=== PATIENT | male | born 1950 | race Caucasian/White ===

== ENCOUNTER → 2016-12-25 | Outpatient (CLI) | payer OTHER ==
[~2016-12-25] VITALS: Ht 172.7 cm; Wt 72.6 kg
[~2016-12-25] MED LIST: CHLORTHALIDONE25 MG PO; CO Q-10100 MG PO; COZAAR 50 MG TA50 M2 PO; FISH OIL 1,001000 M2 PO; OMEPRAZOLE 20 M20 M1 PO; PRALUENT P75 MG/1 ML SQ
--- NOTE | ~2016-12-25 | S ---
[facility] [place] [address] SURGICAL PATH RPT PROCEDURE Name: DANY LAUGHLIN Room #: REG CLI M..#: [id number] Admission: 12/25/16 Date of : 52 Discharge: Report #: [id number] Path Case #: [id number] PATHOLOGY REPORT COLLECTION DATE: 12/25/2016 RECEIVED DATE: 12/25/2016 SUBMITTING PHYS: Dr. Noel Gonzales OTHER PHYS: Dr. Harpal Montiel SPECIMEN(S) RECEIVED: A.Distal esophagus * * * * * * * * * * * * FINAL DIAGNOSIS: "Distal esophagus", biopsy: - Esophageal squamous mucosa and gastric cardiac-type mucosa with reactive changes, chronic inflammation and focal minimal intestinal metaplasia, compatible with Cuevas's mucosa; no dysplasia seen. (See comment). COMMENT: Clinical and endoscopic correlation is required. PATHOLOGIST: Danielle Gay M.D. REPORT ELECTRONICALLY SIGNED BY: Danielle Gay M.D. DATE/TIME: 12/29/2016 22:20 * * * * * * * * * * * * GROSS PATHOLOGY: Received in formalin labeled "Dany Laughlin, distal esophagus biopsy," are 4 segments of humphrey soft tissue measuring 0.7 x 0.5 x 0.3 cm in aggregate dimensions and ranging from 0.3 to 0.5 cm in maximum dimension. The specimen is submitted entirely in cassette A1. (KAH; 12/28/2016) CLINICAL HISTORY: Pre-op dx: Cuevas's Post-op dx: Multiple strictures, Cuevas's, hiatal hernia INITIAL CPT CODE(S): A; 76166 [facility] [address], [place] [address] [facility] [address] [place] [address] SURGICAL PATH RPT PROCEDURE Name: DANY LAUGHLIN Room #: REG SHERI Mccray.#: [id number] Admission: 12/25/16 Date of : 52 Discharge: Report #: [id number] Path Case #: [id number] Technical services performed by [facility] at [address] [place] [address], [facility] [address] [address]. [facility] [address] [address] PHONE: [phone] DIRECTOR: Joni Craft M.D. * * * END OF REPORT * * *
--- NOTE | ~2016-12-25 | P ---
[facility] [place] [address] PROCEDURE REPORT Name: DANY LAUGHLIN [facility] [id number] Admission: 12/25/16 Attend Phys: Noel Gonzales MD Discharge: Date of : 52 Report #: [id number] THIS REPORT FOR: //name// CC: Harpal Gonzales PROCEDURE: Outpatient upper endoscopy. BRIEF HISTORY: The patient is a 66-year-old male known to me with history of Cuevas's esophagus and also multiple distal esophageal strictures. PREOPERATIVE DIAGNOSES: Dysphagia, Cuevas esophagus. POSTOPERATIVE DIAGNOSES: 1. Multiple distal esophageal strictures. 2. Cuevas's esophagus. 3. Moderate hiatus hernia. MEDICATIONS: Deep sedation with propofol per anesthesia. SPECIMEN: Biopsy, distal esophagus regarding Cuevas. ESTIMATED BLOOD LOSS: 3 mL. PROCEDURE: EGD with balloon dilation of distal esophagus and biopsy of Cuevas mucosa. FINDINGS: Prior to propofol sedation, procedure of upper endoscopy and dilation was reviewed with the patient as well as potential risks and its complications. He indicates he understands and desires to proceed. DESCRIPTION OF PROCEDURE: With the patient in left lateral decubitus position, the [employer] video endoscope was inserted into the cervical esophagus under direct vision without difficulty. Examination of this organ throughout its entire length revealed normal esophageal mucosa in the proximal and mid esophagus. However, we advanced the scope distally, starting at about 33 cm, there were noted to be multiple strictures and some luminal irregularity; however, the mucosa was flat. A couple of small squamous islands of Cuevas mucosa were seen. As the scope was advanced through multiple strictures, there were 2 areas of mucosa consistent with Cuevas's. About 40% to 50% of lumen was involved in the distal 2 cm. The Cuevas mucosa was flat. Again, multiple mild strictures were seen. I presume at some point, there was some sort of injury or trauma to the esophagus at this level. The scope passed through very easily. A small to moderate hiatus hernia was encountered. The mucosa in the hernia was normal. Scope was advanced into the stomach, which was examined on end view as well as retroflexed views. There is normal-appearing mucosa. A hiatus hernia was seen. [facility] [address] [place] [address] PROCEDURE REPORT Name: LAUGHLINDANY ANJELICA Room #: REG [facility].#: [id number] Admission: 12/25/16 Attend Phys: Noel Gonzales MD Discharge: Date of : 52 Report #: [id number] The examination of distal stomach revealed normal mucosa. The pylorus, duodenal bulb and postbulbar sweep were inspected and noted to be unremarkable. At that point, the scope was slowly withdrawn and careful circumferential views confirmed the above findings. We positioned the scope in the distal esophagus and initially used a 12-13.5-15 mm balloon. I actually positioned the balloon at the proximal and distal aspects of this narrowed segment. There was minimal contact of balloon with the mucosa at 12 and 13.5. There was contact with insufflation of the balloon at the 15 mm level. Following dilation with a 15 mm balloon, couple of very superficial tears were seen, no more than about 2 mm. We then went on to 16.5 mm balloon. There was a little bit more superficial tear in the proximal segment of this 3 strictured area, and we discontinued further efforts to dilate it at that point. We then obtained biopsies of the Cuevas mucosa. Scope was withdrawn. The patient tolerated the procedure well. CONDITION OF THE PATIENT UPON DISCHARGE: Following procedure, the patient was drowsy, aroused, conversant and will be discharged home when fully ambulatory. INSTRUCTIONS TO THE PATIENT AND FAMILY AT THE TIME OF DISCHARGE: We will have the patient started off on liquids and advance as tolerated. He shall continue his PPI for his Cuevas. We will follow up on biopsies, but at this point, unless dysplasia is present and further intervention is required, we will have her return in 3 years for repeat dilation. He will return to care of Dr. Montiel and will return to see me as needed. <ELECTRONICALLY SIGNED> By: Noel Gonzales MD 12/26/16 1228 0844 1156 Noel Gonzales MD /nt
== END | disposition home or self-care (01) ==
LOC: GI 12-24 08:13
DX: K22.2 Esophageal obstruction (principal); K22.70 Barrett's esophagus without dysplasia; K44.9 Diaphragmatic hernia without obstruction or gangrene
CPT/HCPCS: 62110; 62900

== ENCOUNTER → 2019-08-04 | Outpatient (CLI) | payer OTHER ==
[~2019-08-04] VITALS: Ht 172.7 cm; Wt 74.8 kg
[~2019-08-04] MED LIST changes: +ASPIR-LOW81 MG PO; +TOPROL XL25 MG PO
--- NOTE | 2019-08-08 11:07 | PATH ---
[facility] [address] [place] [address] PATHOLOGY RPT PROCEDURE Name: DANY LAUGHLIN Room #: REG SHERI Mccray.#: [id number] Admission: 08/04/19 Date of : 52 Discharge: Report #: [id number] Path Case #: [id number] [facility] Accession Number: [id number] . 01 Material submitted: . PART A: esophagus - BIOPSY OF ESOPHAGUS AT 40CM R/O DYSPLASIA PART B: esophagus - BIOPSY OF ESOPHAGUS AT 38CM R/O DYSPLASIA PART C: esophagus - RANDOM BIOPSY OF ESOPHAGUS R/O EOE PART D: colon - POLYP AT 50CM PART E: colon - POLYP AT 20CM . 01 Clinical history: . Cuevas's, hiatus hernia, gastritis. . 02 Diagnosis: A. Gastroesophageal mucosa, esophagus at 40 cm, endoscopic biopsy: - Specialized columnar epithelium with intestinal metaplasia consistent with Cuevas's metaplasia. - Negative for dysplasia. - Squamous mucosa with mild esophagitis. . B. Gastroesophageal mucosa, esophagus at 38 cm, endoscopic biopsy: - Specialized columnar epithelium with intestinal metaplasia consistent with Cuevas's metaplasia. - Negative for dysplasia. - Squamous mucosa with mild esophagitis. . C. Squamous mucosa, esophagus rule out eosinophilic esophagitis, endoscopic biopsy: - Mild active esophagitis. - No increase in intraepithelial eosinophils (less than 1/HPF). - Negative for intestinal metaplasia or dysplasia. . D. Polyp, at 50 cm, endoscopic biopsy: - Tubular adenoma. - Negative for high grade dysplasia. . E. Polyp, at 20 cm, endoscopic biopsy: - Tubular adenoma. - Negative for high grade dysplasia. - Inked/cauterized margins showing unremarkable mucosa. (IUV/db; 08/07/2019) LBQ 08/07/2019 1542 Local . 02 Electronically signed: . Tiff Diaz MD, Pathologist NPI- [id number] [address] [address] PATHOLOGY RPT PROCEDURE Name: DANY LAUGHLIN Room #: REG CLI Shazia.#: [id number] Admission: 08/04/19 Date of : 52 Discharge: Report #: [id number] Path Case #: [id number] . 01 Gross description: . A. Received in formalin labeled "Dany Laughlin BX of esophagus at 40 cm rule out dysplasia" is a 1.0 x 0.6 x 0.1 cm aggregate of humphrey-brown mucosa fragments. The specimen is submitted in A1. . B. Received in formalin labeled "Dany Laughlin, BX of esophagus at 38 cm rule out dysplasia" is a 0.9 x 0.5 x 0.1 cm aggregate of humphrey-brown mucosa fragments. The specimen is submitted in B1. . C. Received in formalin labeled "Dany Laughlin, random BX of esophagus rule out EOE" is a 1.0 x 0.5 x 0.1 cm aggregate of humphrey-brown mucosa fragments. The specimen is submitted in C1. . D. Received in formalin labeled "Dany Laughlin, polyp at 50 cm" is a 1.6 x 0.6 x 0.1 cm fragment of humphrey-brown mucosa. The margin is inked and the specimen is bisected and submitted in D1. . E. Received in formalin labeled "Dany Laughlin, polyp at 20 cm" is a 1.0 x 0.8 x 0.8 cm humphrey-brown nodular mucosal polyp. The margin is inked and the specimen is serially sectioned and submitted in E1. ([facility]; 08/05/2019) [facility] 08/05/2019 0923 Local . 02 Pathologist provided ICD-10: K22.70, K20.9, D12.6 . 02 CPT . 198857, 729444, 383840, 751309, 765229 Specimen Comment: A courtesy copy of this report has been sent to [phone], [phone] Specimen Comment: [phone] Specimen Comment: Report sent to and Performed at: [address] [facility], [place], [place] [id number] MD Ming Eagle MD Phone: [phone] Performed at: [address] [facility] [id number] MD Tiff Diaz MD Phone: [phone]
--- NOTE | 2019-08-09 16:47 | P ---
[facility] [place] [address] PROCEDURE REPORT Name: DANY LAUGHLIN Room #: REG [facility]#: [id number] Admission: 08/04/19 Attend Phys: Noel Gonzales MD Discharge: Date of : 52 Report #: [id number] THIS REPORT FOR: //name// CC: Harpal Gonzales DATE OF SERVICE: 08/04/2019 BRIEF HISTORY: The patient is a 69-year-old male known to me with a history of reflux disease and Cuevas esophagus. He presents for a followup of his Cuevas esophagus. In the past, he has had non-dysplastic mucosa. PREOPERATIVE DIAGNOSIS: Cuevas's esophagus. POSTOPERATIVE DIAGNOSES: 1. Cuevas's esophagus. 2. Small intermittently seen hiatus hernia. 3. Diffusely scarred esophagus. 4. Diffuse gastritis. MEDICATIONS: Deep sedation with propofol per anesthesia. SPECIMENS: 1. Biopsy of esophagus at 40 cm. 2. Biopsy of esophagus at 38 cm. 3. Random biopsies of esophagus. ESTIMATED BLOOD LOSS: 3 mL. PROCEDURE: EGD with biopsy. FINDINGS: Prior to propofol sedation, procedure of upper endoscopy was reviewed with the patient as well as potential risks and its complications. He indicates he understands and desires to proceed. DESCRIPTION OF PROCEDURE: With the patient in left lateral decubitus position, the Olympus video endoscope was inserted in the cervical esophagus under direct vision without difficulty. Examination of this organ through its entire length revealed intact esophageal mucosa. Examination of esophagus revealed what appeared to be scarring involving essentially the distal two-third of the esophagus. There was also evidence of some mild stricturing. This has been noted in the past. He has been dilated in the past. At this time, he reports as long as he is on the omeprazole, he has no complaints of dysphagia. The scope was advanced and once again he was found to have evidence of Cuevas's mucosa in the distal esophagus at about 36-38 cm. A few islands of Cuevas [facility] [address] [place] [address] PROCEDURE REPORT Name: DANY LAUGHLIN Room #: REG [facility].#: [id number] Admission: 08/04/19 Attend Phys: Noel Gonzales MD Discharge: Date of : 52 Report #: [id number] mucosa was seen. The mucosa was flat. It was examined with white light and narrow banded imaging. Just distal to that area at about 40 cm, there was a 2 cm segment of Cuevas mucosa, it involved about 50% of lumen. Once again, it had flat mucosa with white light and narrow banded imaging. Multiple biopsies were obtained. Intermittently, a small, less than 2 cm sliding type hiatus hernia was seen. Scope was advanced in the stomach, was examined on end view as well as retroflexed views. There was erythema in the antrum of the stomach, which has been noted in the past. No ulcers or erosions were seen. Upon retroflexion, no abnormalities were identified. Specifically, there were no masses in the cardia. The pylorus, duodenal bulb and post-coronary sweep were inspected and noted to be unremarkable. At that point, the scope was slowly withdrawn and careful circumferential views confirmed the above findings. In addition, as we withdrew the scope, random biopsies were obtained of the esophagus above the level of the Cuevas's just to make sure we are not dealing with eosinophilic esophagitis. Scope was withdrawn. The patient tolerated the procedure well. CONDITION OF THE PATIENT UPON DISCHARGE: Following procedure, the patient drowsy. He was then prepared for colonoscopy. INSTRUCTIONS TO THE PATIENT AND FAMILY AT THE TIME OF DISCHARGE: He should continue his omeprazole daily. We will follow up on biopsies and make further recommendations. If there is no evidence of dysplasia, he is to return in 3 years for followup endoscopy and biopsy. However, if dysplasia is present, further intervention or evaluation may be needed. Proceed with colonoscopy at this time. <ELECTRONICALLY SIGNED> By: Noel Gonzales MD 08/09/19 1647 0930 1501 Noel Gonzales MD /nt
--- NOTE | 2019-08-09 16:47 | P ---
[facility] [place] [address] PROCEDURE REPORT Name: DANY LAUGHLIN [id number] Admission: 08/04/19 Attend Phys: Noel Gonzales MD Discharge: Date of : 52 Report #: [id number] THIS REPORT FOR: //name// CC: ANNE MARIE Gonzales DATE OF SERVICE: 08/04/2019 OUTPATIENT COLONOSCOPY REPORT BRIEF HISTORY: The patient is a 69-year-old male with a history of colon polyps for high risk screening colonoscopy. PREOPERATIVE DIAGNOSIS: High risk screening colonoscopy. POSTOPERATIVE DIAGNOSES: 1. Colon polyps x 2. 2. Olpevgcn-nx-mjhdck left-sided diverticulosis coli. 3. Small internal hemorrhoids. MEDICATIONS: Deep sedation with propofol per anesthesia. SPECIMENS: 1. Polyp from 50 cm. 2. Polyp from 20 cm. ESTIMATED BLOOD LOSS: 3 mL. PROCEDURE: Colonoscopy to cecum and terminal ileum with snare polypectomy. FINDINGS: Prior to propofol sedation, procedure of colonoscopy discussed with the patient as well as potential risks and its complications. He indicates he understands and desires to proceed. DESCRIPTION OF PROCEDURE: With the patient in the in left lateral decubitus position, digital examination was completed, which revealed no abnormalities. Subsequently, the Olympus video colonoscope was introduced in the rectum, advanced under direct vision to the cecum. Done with minimal difficulty. The cecum was identified by the ileocecal valve and the appendiceal orifice. I was able to visualize the distal segment of the terminal ileum, which was inspected and noted to be unremarkable. At that point, the scope was slowly withdrawn and careful circumferential views were obtained. Upon slow withdrawal of the scope, the prep was good. The mucosa was within normal limits, normal vascular pattern, and normal light reflex. As we withdrew the scope, a few diverticula were seen in the proximal colon. However, there was no endoscopic evidence of [facility] [address] [place] [address] PROCEDURE REPORT Name: LAUGHLINDANY DEJESUS [facility]: [facility] [id number] Admission: 08/04/19 Attend Phys: Noel Gonzales MD Discharge: Date of : 52 Report #: [id number] diverticulitis. As we withdrew the scope distally, no mucosal abnormalities were noted until about 50 cm, at which point, a flat 5-6 mm polyp was seen and removed by cold snare polypectomy and recovered. The scope was further withdrawn and into the sigmoid colon, there was fairly extensive diverticular disease. There was no endoscopic evidence of diverticulitis. At 20 cm, a polyp on a stalk was seen. The polyp was 10-12 mm in greatest dimension. The polyp was very difficult to see. This was in the sigmoid colon with thickened folds related to diverticular disease and we can just barely see behind the fold. We were unable to obtain an angle with the colonoscope. We switched to an upper endoscope and with some difficulty, we were finally able to view the polyp and get a snare around it and completed a hot snare polypectomy. There was good hemostasis. With some difficulty, we were able to visualize the polypectomy site, which was clean and there was no evidence of bleeding. Scope was further withdrawn and no additional neoplastic lesions were seen. Scope was withdrawn in the rectum and upon retroflexion, small hemorrhoids were seen. Scope was withdrawn. The patient tolerated the procedure well. CONDITION OF THE PATIENT UPON DISCHARGE: Following procedure, the patient drowsy, aroused, conversant and will be discharged to home when fully ambulatory. INSTRUCTIONS TO PATIENT AND FAMILY AT THE TIME OF DISCHARGE: Two polyps identified and removed as described above. Both have a benign appearance. Due to the size of the sigmoid polyp and difficulty with visualizing the site, we will have him return in 3 years for high risk screening colonoscopy. I suggest high fiber diet for the diverticular disease. The patient should avoid aspirin products for the next 2 weeks to try to reduce the likelihood of post-polypectomy bleeding. <ELECTRONICALLY SIGNED> By: Noel Gonzales MD 08/09/19 1647 1026 1043 Noel Gonzales MD /nt
== END | disposition home or self-care (01) ==
LOC: GI 07:32
DX: Z12.11 Encounter for screening for malignant neoplasm of colon (principal); Z86.010 Personal history of colon polyps; D12.5 Benign neoplasm of sigmoid colon; K64.8 Other hemorrhoids; K57.30 Diverticulosis of large intestine without perforation or abscess without bleeding; K21.0 Gastro-esophageal reflux disease with esophagitis; K22.70 Barrett's esophagus without dysplasia; K44.9 Diaphragmatic hernia without obstruction or gangrene; K29.70 Gastritis, unspecified, without bleeding; I10 Essential (primary) hypertension; E78.5 Hyperlipidemia, unspecified; K21.9 Gastro-esophageal reflux disease without esophagitis; Z95.1 Presence of aortocoronary bypass graft; Z87.891 Personal history of nicotine dependence; Z87.442 Personal history of urinary calculi; Z85.828 Personal history of other malignant neoplasm of skin; Z98.890 Other specified postprocedural states; Z79.899 Other long term (current) drug therapy; Z79.82 Long term (current) use of aspirin
CPT/HCPCS: 62110; 62900